=== PATIENT | female | born 1965 | race Native Hawaiian/Other Pacific Islander ===

== ENCOUNTER 2020-12-17 10:41 | Outpatient (CLI) | payer OTHER | END 2020-12-17 23:03 | disposition home or self-care (01) | LOC: MRI 10:41 | PROVIDERS: ATTEND Orthopaedic Surgery | DX: M54.16 Radiculopathy, lumbar region (principal); M54.5 Low back pain; M51.37 Other intervertebral disc degeneration, lumbosacral region; M76.01 Gluteal tendinitis, right hip; M25.561 Pain in right knee ==

== ENCOUNTER 2021-03-02 08:38 | Outpatient (CLI) | payer OTHER | END 2021-03-02 21:43 | disposition home or self-care (01) | LOC: MRI 08:38 | PROVIDERS: ATTEND Orthopaedic Surgery | DX: M70.62 Trochanteric bursitis, left hip (principal); M16.0 Bilateral primary osteoarthritis of hip; M25.551 Pain in right hip; M25.561 Pain in right knee; M17.11 Unilateral primary osteoarthritis, right knee; S83.241A Other tear of medial meniscus, current injury, right knee, initial encounter; X58.XXXA Exposure to other specified factors, initial encounter; Y93.89 Activity, other specified; Y92.89 Other specified places as the place of occurrence of the external cause ==

== ENCOUNTER 2022-01-18 15:30 | Outpatient (CLI) | payer OTHER ==
[2022-01-18 15:54] LABS: PLATELET COUNT 248 K/uL (152-353)
[2022-01-18 16:40] LABS: POTASSIUM 3.9 mmol/L (3.6-5.2)
== END 2022-01-18 19:04 | disposition home or self-care (01) ==
LOC: CT 15:30
PROVIDERS: ATTEND Nurse Practitioner Family
DX: R10.2 Pelvic and perineal pain (principal); R34 Anuria and oliguria
CPT/HCPCS: 36415; 80053; 85027; Q9963

== ENCOUNTER 2022-02-09 13:59 | Outpatient (CLI) | payer OTHER | END 2022-02-09 19:07 | disposition home or self-care (01) | LOC: MRI 13:59 | PROVIDERS: ATTEND Urology | DX: R30.0 Dysuria (principal); R31.1 Benign essential microscopic hematuria; N28.89 Other specified disorders of kidney and ureter | CPT/HCPCS: A9576 ==

== ENCOUNTER 2022-02-15 08:58 | Outpatient (CLI) | payer OTHER | END 2022-02-15 18:57 | disposition home or self-care (01) | LOC: MRI 08:58 | PROVIDERS: ATTEND Urology | DX: R30.0 Dysuria (principal); R31.1 Benign essential microscopic hematuria; N28.89 Other specified disorders of kidney and ureter | CPT/HCPCS: A9576 ==